=== PATIENT | female | born 1970 | race African-American/Black ===

== ENCOUNTER 2018-01-31 12:29 | Emergency (ER) | payer MEDICAID ==
[~2018-01-31] VITALS: Ht 165.1 cm; Wt 86.2 kg
[2018-01-31 12:29] VITALS: BP 131/70
== END 2018-01-31 13:31 | disposition home or self-care (01) ==
LOC: ER 12:32
DX: J20.9 Acute bronchitis, unspecified (principal); K21.9 Gastro-esophageal reflux disease without esophagitis
CPT/HCPCS: A4606; Z7610

== ENCOUNTER 2018-04-29 17:13 | Emergency (ER) | payer MEDICAID ==
[~2018-04-29] VITALS: Ht 167.6 cm; Wt 85.7 kg
--- NOTE | 2018-04-29 17:50 | NUR ---
PT TO ER BED 14. PRESENTS W/ R EYE ITCHING AND REDNESS. RUE PAIN AND SWELLING X 3 DAYS. PT STATES NO RECENT TRAUMA. GOWNED AND PLACED ON MONITOR. AWAITING MD BAY.
--- NOTE | 2018-04-29 18:19 | NUR ---
PIERCE EGG CRATER AT BEDSIDE FOR EVAL.
[2018-04-29 18:37] LABS: BASOPHILS % (AUTO) 0.3 % (0.0-2.0); EOSINOPHILS % (AUTO) 1.3 % (0.0-6.0); HEMATOCRIT 33 % (33-45); HEMOGLOBIN 11.4 g/dL (11.5-14.8); LYMPHOCYTES # (AUTO) 1.9 /CMM (0.8-4.8); LYMPHOCYTES % (AUTO) 48.3 % (20.0-44.0); MEAN CORPUSCULAR HEMOGLOBIN 29 PG (26.0-33.0); MEAN CORPUSCULAR HGB CONC 34 g/dl (31.0-36.0); MEAN CORPUSCULAR VOLUME 85 fL (82-100); MONOCYTES # (AUTO) 0.3 /CMM (0.1-1.30); MONOCYTES % (AUTO) 9.2 % (2.0-12.0); NEUTROPHILS # (AUTO) 1.6 /CMM (1.8-8.9); NEUTROPHILS % (AUTO) 40.9 % (43.0-81.0); PLATELET COUNT (AUTO) 98 /CMM (150-450); RDW COEFFICIENT OF VARIATION 12.6 (11.5-15.0); RED BLOOD CELL COUNT(AUTO) 3.93 MIL/uL (4.0-5.2); WHITE BLOOD COUNT (AUTO) 3.8 K/uL (4.3-11.0)
[2018-04-29 18:46] LABS: CALCIUM, SERUM 8.7 mg/dL (8.5-10.1); CREATININE 0.6 mg/dL (0.6-1.3); INR 1.13 (0.85-1.15); POTASSIUM 4.1 mmol/L (3.5-5.1)
--- NOTE | 2018-04-29 19:00 | NUR ---
U/S TECH AT BEDSIDE FOR RUE DUPLEX ULTRASOUND.
[2018-04-29 19:41] LABS: BAND % (MANUAL) 2 % (0.0-5.0); LYMPHOCYTES % (MANUAL) 55 % (16-48); MONOCYTES % (MANUAL) 2 % (0-11.0); NEUTROPHILS % (MANUAL) 41 (42-76)
--- NOTE | 2018-04-29 20:05 | NUR ---
SHOULDER SLING PROVIDED.Patient discharged to home in stable condition. Written and verbal after care instructions given. Patient verbalizes understanding of instruction.
[2018-04-29 20:06] VITALS: BP 134/77
== END 2018-04-29 20:07 | disposition home or self-care (01) ==
LOC: ER 17:15
DX: M79.621 Pain in right upper arm (principal); H10.9 Unspecified conjunctivitis
CPT/HCPCS: 36415; 80048-TC; 85025-TC; 85610-TC; 93971-TC; A4606; Z7610

== ENCOUNTER 2019-06-24 18:25 | Emergency (ER) | payer MEDICAID ==
[~2019-06-24] VITALS: Ht 167.6 cm; Wt 99.8 kg
--- NOTE | 2019-06-24 18:27 | NUR ---
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 Earache" PT AAOX4, -SOB, NAD NOTED, VSS ,PENDING MD BAY
[2019-06-24] MEDS ORDERED: KETOROLAC TROMETHAMINE INJ 30 MG/ML VIAL IV ONE (19:30)
[2019-06-24] MEDS ORDERED: IV NS 0.9% 1,000 ML BAG IV ONE (19:30)
[2019-06-24] MEDS ORDERED: ACETAMINOPHEN 325 MG TABLET PO ONE (19:30)
[2019-06-24 19:33] LABS: BASOPHILS % (AUTO) 0.3 % (0.0-2.0); EOSINOPHILS % (AUTO) 0.1 % (0.0-6.0); HEMATOCRIT 44 % (33-45); HEMOGLOBIN 14.5 g/dL (11.5-14.8); LYMPHOCYTES # (AUTO) 0.5 /CMM (0.8-4.8); LYMPHOCYTES % (AUTO) 25.3 % (20.0-44.0); MEAN CORPUSCULAR HGB CONC 33 g/dl (31.0-36.0); MEAN CORPUSCULAR VOLUME 91 fL (82-100); MONOCYTES # (AUTO) 0.3 /CMM (0.1-1.30); NEUTROPHILS # (AUTO) 1.2 /CMM (1.8-8.9); NEUTROPHILS % (AUTO) 60.3 % (43.0-81.0); PLATELET COUNT (AUTO) 85 /CMM (150-450); RED BLOOD CELL COUNT(AUTO) 4.84 MIL/uL (4.0-5.2)
[2019-06-24 19:46] LABS: CALCIUM, SERUM 8.3 mg/dL (8.5-10.1); CARBON DIOXIDE 32 mmol/L (21-32); CHLORIDE 101 mmol/L (98-107); GLUCOSE 147 mg/dL (74-106); SODIUM SERUM 138 mmol/L (136-145); UREA NITROGEN, BLOOD 10 mg/dL (7-18)
[2019-06-24] MEDS ORDERED: KETOROLAC TROMETHAMINE INJ 30 MG/ML VIAL ONE (19:49)
[2019-06-24] MEDS ORDERED: ACETAMINOPHEN 325 MG TABLET ONE (19:49)
[2019-06-24 19:51] LABS: ALANINE AMINOTRANSFERASE 30 U/L (12-78); ALBUMIN 3.4 g/dL (3.4-5.0); ALKALINE PHOSPHATASE 87 U/L (46-116); ASPARTATE AMINOTRANSFERASE 32 U/L (15-37); BILIRUBIN,DIRECT 0.1 mg/dL (0.0-0.2); BILIRUBIN,TOTAL 0.3 mg/dL (0.2-1.0); TOTAL PROTEIN, SERUM 7.9 g/dL (6.4-8.2)
[2019-06-24 20:11] LABS: LYMPHOCYTES % (MANUAL) 35 % (16-48); MONOCYTES % (MANUAL) 19 % (0-11.0); NEUTROPHILS % (MANUAL) 46 (42-76)
[2019-06-24 21:36] LABS: APPEARANCE,URINE CLOUDY (CLEAR); BILIRUBIN,URINE NEGATIVE (NEGATIVE); BLOOD, URINE NEGATIVE Ery/uL (NEGATIVE); COLOR,URINE DARK YELLO (YELLOW); KETONES,URINE NEGATIVE (NEGATIVE); LEUKOCYTE ESTERASE ,URINE NEGATIVE (NEGATIVE); NITRITE, URINE NEGATIVE (NEGATIVE); PH,URINE 5.5 (5.0-8.0); PROTEIN,URINE TRACE mg/dl (NEGATIVE); UGLUCOSE NEGATIVE (NEGATIVE); UROBILINOGEN,URINE 0.2 EU/dL (0.2)
[2019-06-24 21:53] LABS: BACTERIA,URINE None seen /HPF (None Seen); RBC,URINE 0-2 /HPF (0-2)
[2019-06-24 21:54] LABS: MUCUS,URINE Moderate /LPF (None Seen); SQUAMOUS EPITHELIAL CELL,UR Many /HPF (None Seen)
--- NOTE | 2019-06-24 23:08 | NUR ---
Patient discharged to home in stable condition. Written and verbal after care instructions given. Patient verbalizes understanding of instruction. IV removed. Catheter intact and site benign. Pressure and 4x4 applied to site. No bleeding noted.
[2019-06-24 23:13] VITALS: BP 133/64
== END 2019-06-24 23:14 | disposition home or self-care (01) ==
LOC: ER 18:28
DX: J18.9 Pneumonia, unspecified organism (principal); R21 Rash and other nonspecific skin eruption; J06.9 Acute upper respiratory infection, unspecified; R94.31 Abnormal electrocardiogram [ECG] [EKG]
CPT/HCPCS: 36415; 71045; 80048; 80076; 81001; 83605 ×2; 84145; 85025; 87040 ×2; 87081; 87086; 93005; 96374; 99284; J1885; J7030; 81000-TC

== ENCOUNTER 2020-04-17 18:04 | Emergency (ER) | payer MEDICAID ==
[~2020-04-17] VITALS: Ht 167.6 cm; Wt 113.4 kg
--- NOTE | 2020-04-17 18:10 | NUR ---
came in for right arm pain /swelling x 3 days, denies injury/trauma, 05/17 ps, to ER bed 9, hooked to monitor, provided w warm blanket, NE[facility]OR [place] at bedside for eval.
[2020-04-17] MEDS ORDERED: TRAMADOL HCL 50 MG TABLET ONE (18:21)
[2020-04-17] MEDS ORDERED: TRAMADOL HCL 50 MG TABLET PO ONE (18:30)
--- NOTE | 2020-04-17 19:40 | NUR ---
US AT BEDSIDE.
[2020-04-17 20:55] VITALS: BP 130/76
--- NOTE | 2020-04-17 20:55 | NUR ---
patient given a sling for right arm.
== END 2020-04-17 20:55 | disposition home or self-care (01) ==
LOC: ER 18:04
DX: M77.8 Other enthesopathies, not elsewhere classified (principal); E78.5 Hyperlipidemia, unspecified
CPT/HCPCS: 73090-TC; 93971-TC

== ENCOUNTER 2021-05-29 17:37 | Emergency (ER) | payer MEDICAID ==
[~2021-05-29] VITALS: Ht 167.6 cm; Wt 115.7 kg
[~2021-05-29 17:37] MED LIST: ACET-2605 PO
[2021-05-29 18:41] VITALS: BP 120/78
[2021-05-29] MEDS ORDERED: SULFAMETH/TRIMETH 800/160 MG 1 UDTAB TABLET PO ONE (19:00)
[2021-05-29] MEDS ORDERED: LORATADINE 10 MG TABLET PO SCH (19:00)
[2021-05-29] MEDS ORDERED: CEFTRIAXONE 1 G VIAL IM ONE (19:00)
[2021-05-29] MEDS ORDERED: SULF1TAB47 PO (19:06)
[2021-05-29] MEDS ORDERED: SULF1TAB48 PO (19:06)
[2021-05-29] MEDS ORDERED: CEPH500C2 PO (19:06)
[2021-05-29] MEDS ORDERED: LIDOCAINE 1% INJ 50 ML MDV IJ ONE (19:12)
[2021-05-29] MEDS ORDERED: CEFTRIAXONE 1 G VIAL ONE (19:12)
[2021-05-29] MEDS ORDERED: SULFAMETH/TRIMETH 800/160 MG 1 UDTAB TABLET ONE (19:13)
[2021-05-29] MEDS ORDERED: LORATADINE 10 MG TABLET ONE ×2 (19:13→19:17)
--- NOTE | 2021-05-29 19:30 | NUR ---
STK CLARITIN NOT GIVEN, PULLED FROM FLOOR. MED NOT AVAILABLE IN ED
== END 2021-05-29 19:26 | disposition home or self-care (01) ==
LOC: ER 17:37
DX: L03.113 Cellulitis of right upper limb (principal); E03.9 Hypothyroidism, unspecified; Z60.2 Problems related to living alone
CPT/HCPCS: 96372; 99283; J0696; J3490

== ENCOUNTER 2021-06-19 10:35 | Emergency (ER) | payer MEDICAID ==
[~2021-06-19] VITALS: Ht 167.6 cm; Wt 113.4 kg
[2021-06-19 10:35] VITALS: BP 140/76
[~2021-06-19 10:35] MED LIST changes: +CEPH500C2 PO; +SULF1TAB47 PO; +SULF1TAB48 PO
[2021-06-19] MEDS ORDERED: SULF1TAB48 PO (10:49)
[2021-06-19] MEDS ORDERED: LACT1CAP71 PO (10:49)
[2021-06-19] MEDS ORDERED: CEPH500C2 PO (10:49)
--- NOTE | 2021-06-19 11:06 | NUR ---
Patient discharged to home in stable condition. Written and verbal after care instructions given. Patient verbalizes understanding of instruction.
== END 2021-06-19 11:07 | disposition home or self-care (01) ==
LOC: ER 10:40
DX: L03.113 Cellulitis of right upper limb (principal); E03.9 Hypothyroidism, unspecified; Z60.2 Problems related to living alone; Z79.899 Other long term (current) drug therapy

== ENCOUNTER 2022-05-19 15:11 | Emergency (ER) | payer MEDICAID ==
[~2022-05-19] VITALS: Ht 165.1 cm; Wt 111.1 kg
[~2022-05-19 15:11] MED LIST changes: +LACT1CAP71 PO
[2022-05-19] MEDS ORDERED: CEPH500T PO (16:32)
[2022-05-19] MEDS ORDERED: CYCLOBENZAPRINE 10 MG TABLET ONE (16:40)
[2022-05-19] MEDS ORDERED: KETOROLAC TROMETHAMINE INJ 30 MG/ML VIAL ONE (16:40)
[2022-05-19] MEDS: KETOROLAC TROMETHAMINE INJ 30 MG/ML VIAL IM ONE (16:55)
[2022-05-19] MEDS: CYCLOBENZAPRINE 10 MG TABLET PO ONE (16:55)
[2022-05-19] MEDS ORDERED: CYCL5TAB PO (17:20)
[2022-05-19] MEDS ORDERED: IBUP-1957 PO (17:20)
[2022-05-19 17:25] VITALS: BP 125/70
--- NOTE | 2022-05-19 17:26 | NUR ---
Patient discharged to home in stable condition. Written and verbal after care instructions given. Patient verbalizes understanding of instruction.
== END 2022-05-19 17:26 | disposition home or self-care (01) ==
LOC: ER 15:16
DX: L03.113 Cellulitis of right upper limb (principal); M25.521 Pain in right elbow; E03.9 Hypothyroidism, unspecified; Z60.2 Problems related to living alone; Z79.899 Other long term (current) drug therapy
CPT/HCPCS: 99283; 96372; 82962; J1885

== ENCOUNTER 2023-01-18 12:23 | Emergency (ER) | payer MEDICAID ==
[~2023-01-18] VITALS: Ht 165.1 cm; Wt 117.9 kg
[~2023-01-18 12:23] MED LIST changes: +CEPH500T PO; +CYCL5TAB PO; +IBUP-1957 PO
--- NOTE | 2023-01-18 12:52 | NUR ---
PT IN BED 7, A/O X4 BREATHING EVEN AND UNLABROED. C/O OF HEADACHE 05/17 AND NEW FORMED GROWTHS ON THE LEFT SHOULDER. Hx OF THYROID CONDITON AND HI LDL.
[2023-01-18] MEDS ORDERED: PROCHLORPERAZINE EDISYLATE 10 MG/2 ML VIAL ONE (13:45)
[2023-01-18] MEDS ORDERED: ACETAMINOPHEN ES 500 MG TABLET ONE (13:46)
[2023-01-18] MEDS ORDERED: diphenhydrAMINE HCL ELIX 25 MG/10 ML UDC ONE (13:46)
[2023-01-18] MEDS ORDERED: IV NS 0.9% 1,000 ML BAG IV ONE (14:00)
[2023-01-18] MEDS ORDERED: PROCHLORPERAZINE EDISYLATE 10 MG/2 ML VIAL IVP ONE (14:00)
[2023-01-18] MEDS ORDERED: ACETAMINOPHEN ES 500 MG TABLET PO ONE (14:00)
[2023-01-18] MEDS ORDERED: DIPHENHYDRAMINE HCL 12.5 MG/5 ML UDC PO ONE (14:00)
--- NOTE | 2023-01-18 14:35 | NUR ---
PT WENT FOR CT HEAD
[2023-01-18 15:06] LABS: BASOPHILS % (AUTO) 0.6 % (0.0-2.0); EOSINOPHILS % (AUTO) 1.8 % (0.0-6.0); HEMATOCRIT 39 % (33-45); LYMPHOCYTES # (AUTO) 1.5 K/uL (0.8-4.8); LYMPHOCYTES % (AUTO) 40.4 % (20.0-44.0); MEAN CORPUSCULAR HGB CONC 33 g/dl (31.0-36.0); MEAN CORPUSCULAR VOLUME 89 fL (82-100); MONOCYTES # (AUTO) 0.4 K/uL (0.1-1.30); MONOCYTES % (AUTO) 9.5 % (2.0-12.0); NEUTROPHILS # (AUTO) 1.8 K/uL (1.8-8.9); NEUTROPHILS % (AUTO) 47.7 % (43.0-81.0); PLATELET COUNT (AUTO) 116 K/uL (150-450); WHITE BLOOD COUNT (AUTO) 3.7 K/uL (4.3-11.0)
[2023-01-18 15:12] LABS: ALBUMIN 3.4 g/dL (3.4-5.0); BILIRUBIN,DIRECT 0.1 mg/dL (0.0-0.2); BILIRUBIN,TOTAL 0.5 mg/dL (0.2-1.0); CALCIUM, SERUM 8.3 mg/dL (8.5-10.1); POTASSIUM 4.1 mmol/L (3.5-5.1)
[2023-01-18] MEDS ORDERED: IOHEXOL-300 100 ML VIAL IV ONE (15:53)
[2023-01-18] MEDS ORDERED: CT SWABBABLE VALVE TRANS SET 1 EA INFUS.SET MC ONE (15:53)
[2023-01-18] MEDS ORDERED: IV NS 0.9% 250 ML IV ONE (15:53)
[2023-01-18] MEDS ORDERED: PROC10TA29 PO (17:17)
[2023-01-18 17:43] VITALS: BP 124/72
== END 2023-01-18 17:44 | disposition home or self-care (01) ==
LOC: ER 12:31
DX: R51.9 Headache, unspecified (principal); R59.1 Generalized enlarged lymph nodes; E03.9 Hypothyroidism, unspecified; E78.00 Pure hypercholesterolemia, unspecified; Z60.2 Problems related to living alone; Z79.899 Other long term (current) drug therapy
CPT/HCPCS: 99285; 70450; 96374; 96361; 74177; 85025; 80048; 80076; 36415; J0780; Q0163 ×2; J7030; J7050; Q9967

== ENCOUNTER 2023-10-26 18:50 | Emergency (ER) | payer MEDICAID, OTHER ==
[~2023-10-26] VITALS: Ht 167.6 cm; Wt 117.9 kg
[~2023-10-26 18:50] MED LIST changes: +PROC10TA29 PO
[2023-10-26] MEDS ORDERED: SIME180C35 PO (20:30)
[2023-10-26] MEDS ORDERED: IBUP-1957 PO (20:30)
[2023-10-26 20:36] VITALS: BP 138/68; TEMP 98.1; O2SAT 98
== END 2023-10-26 20:36 | disposition home or self-care (01) ==
LOC: ER 18:50
DX: I89.1 Lymphangitis (principal); M54.6 Pain in thoracic spine; E03.9 Hypothyroidism, unspecified; E78.00 Pure hypercholesterolemia, unspecified; Z60.2 Problems related to living alone; Z79.899 Other long term (current) drug therapy